=== PATIENT | male | born 1980 | race Caucasian/White ===

== ENCOUNTER 2025-04-07 08:40 | Outpatient (CLI) | payer BC ==
[2025-04-07 09:10] LABS: MEAN PLATELET VOLUME 7.7 FL (7.4-10.4); RED CELL DISTRIBUTION WIDTH 13.2 % (11.5-14.5)
[2025-04-07 09:26] LABS: CREATININE 1.03 MG/DL (0.60-1.10); TOTAL CARBON DIOXIDE 31.0 MMOL/L (24-32); eGFR 78 ML/MIN
[2025-04-08 11:12] LABS: TESTOSTERONE, SERUM 163 ng/dL (264-916)
== END 2025-04-07 23:59 | disposition home or self-care (01) ==
LOC: RAD 08:40
PROVIDERS: ATTEND Nurse Practitioner Family
DX: E29.1 Testicular hypofunction (principal)
CPT/HCPCS: 36415; 80053; 84402; 84403; 85025

== ENCOUNTER 2025-06-14 11:41 | Outpatient (CLI) | payer BC ==
[2025-06-14 12:24] LABS: CHOL/HDL RATIO 3.0 (0.00-4.99); LDL CHOLESTEROL 131 MG/DL (50-100)
== END 2025-06-14 23:59 | disposition home or self-care (01) ==
LOC: LAB 11:41
PROVIDERS: ATTEND Student in an Organized Health Care Education/Training Program
DX: E78.49 Other hyperlipidemia (principal)
CPT/HCPCS: 36415; 80061; 83036; 84402; 84403